=== PATIENT | male | born 1960 | race Caucasian/White ===

== ENCOUNTER 2021-12-03 17:21 | Emergency (ER) | payer MEDICAID, OTHER ==
[~2021-12-03] VITALS: Ht 177.8 cm; Wt 98.0 kg
[2021-12-03 17:24] VITALS: BP 130/81
--- NOTE | 2021-12-03 17:38 | NUR ---
PT BIBA AND TAKEN TO BED 10
--- NOTE | 2021-12-03 17:52 | NUR ---
20G IV ESTABLISHED IN R AC AND BLOODWORK COLLECTED. BLOODWORK HANDED TO SUPERVISOR [employer] BEDSIDE
--- NOTE | 2021-12-03 17:55 | NUR ---
PT PLACED ON BEDSIDE CARDAIC MONITOR AND PUT INTO GOWN
--- NOTE | 2021-12-03 17:55 | NUR ---
61Y MALE BIBA FROM CAR DUE TO NON-PROVOKED CHEST PAIN THAT LAST X4HRS. PER PATIENT HE HAS HAD SOME N/V ALONG WITH LIGHTHEADNESS AND DIZZINESS. PER EMS 0.4 NITRO GIVEN AND 4MG ODT GIVEN PO IN FIELD. PT STATED PAIN IS FELT IN THE MID-CHEST AND DOES NOT RADIATE. PT DENIES ANY SOB AT THIS TIME, BUT STATED HE IS STILL FEELING SOME NAUSEA. PT STATED HE VOMITTED X4 TIMES IN THE FIELD, BEFORE CALLING EMS. PT CURRENTLY A&OX4, SKIN DRY AND INTACT, AND PT IN NSR PMH: HTN, MT, HLD, STENT, PROSTATE CANCER, ASTHMA NKA
--- NOTE | 2021-12-03 18:05 | NUR ---
XRAY AT PATIENT BEDSIDE
[2021-12-03 18:26] LABS: BASOPHILS % (AUTO) 0.5 % (0.0-2.0); EOSINOPHILS # (AUTO) 0.1 K/uL (0-0.4); EOSINOPHILS % (AUTO) 0.9 % (0.0-4.0); HEMATOCRIT 37.3 % (36-52); HEMOGLOBIN 12.8 g/dL (12.0-18.0); LYMPHOCYTES # (AUTO) 1.9 K/uL (2.0-11.5); LYMPHOCYTES % (AUTO) 25.1 % (20.5-51.1); MEAN CORPUSCULAR HEMOGLOBIN 32 pg (27-31); MEAN CORPUSCULAR HGB CONC 34 g/dL (33-37); MONOCYTES # (AUTO) 0.6 K/uL (0.8-1.0); MONOCYTES % (AUTO) 8.6 % (1.7-9.3); NEUTROPHILS # (AUTO) 4.8 K/uL (1.8-7.7); NEUTROPHILS % (AUTO) 64.9 % (42.2-75.2); PLATELET COUNT (AUTO) 305 K/uL (140-450); RED BLOOD CELL COUNT(AUTO) 3.97 MIL/uL (4.20-6.10); RED CELL DISTRIBUTION WIDTH 14.3 % (11.6-13.7); WHITE BLOOD COUNT (AUTO) 7.4 K/uL (4.8-10.8)
--- NOTE | 2021-12-03 19:18 | NUR ---
PT PROVIDED WITH CUP OF WATER BEDSIDE
[2021-12-03 19:22] LABS: ALBUMIN 3.1 g/dL (3.4-5.0); ANION GAP 12.4 (8-16); CARBON DIOXIDE 25.7 mmol/L (21-32); CREATININE 0.8 mg/dL (0.6-1.3); MAGNESIUM 2.1 mg/dL (1.8-2.4); PHOSPHORUS 3.5 mg/dL (2.5-4.9); POTASSIUM 4.1 mmol/L (3.5-5.1); TOTAL BILIRUBIN 0.2 mg/dL (0.0-1.0)
--- NOTE | 2021-12-03 19:27 | NUR ---
Pt report given to BURAK PELLETIER. Transfer of care at this time.
[2021-12-03 22:13] VITALS: BP 147/84
--- NOTE | 2021-12-03 22:13 | NUR ---
Patient discharged with v/s stable. Written and verbal after care instructions given and explained. Patient verbalized understanding. Ambulatory with steady gait. All questions addressed prior to discharge. Advised to follow up with PMD. A/OX4, VSS, STEADY GAIT, UNLABORED BREATHING. WRISTBAND AND IV REMOVED.
== END 2021-12-03 22:13 | disposition home or self-care (01) ==
LOC: MED 17:21
DX: R07.89 Other chest pain (principal); R42 Dizziness and giddiness; R53.1 Weakness
CPT/HCPCS: 36415; 71045; 80053; 83735; 84100; 84484; 85025; 93005; 99285; Q0092